=== PATIENT | female | born 1970 | race Two or more races ===

== ENCOUNTER 2019-01-18 16:29 | Inpatient (IN) | payer OTHER ==
[2019-01-18] MEDS ORDERED: SODIUM CHLORIDE 1,000 ML IV STA (17:09)
--- NOTE | 2019-01-18 17:09 | PDOC ---
History of Present Illness - General Chief Complaint: Pain Stated Complaint: ABDOMINAL PAIN Time Seen by Provider: 01/18/19 17:03 History Source: Patient - History of Present Illness Initial Comments: 01/18/19 18:04 48-year-old female complaining of epigastric pain worse at night for the last 8 days. Pain is intermittent in nature reports that the pain radiate from the epigastric to the right shoulder. Denies vomiting, diarrhea, lower abdominal pain, urinary symptoms, chest pain, diaphoresis, dizziness, neck pain. No past medical history Last menstrual period: 01/17/19 Past History - Past Medical History Allergies/Adverse Reactions: Allergies Allergy/AdvReac Type Severity Reaction Status Date / Time No Known Allergies Allergy Verified 01/18/19 16:34 Home Medications: Ambulatory Orders NK [No Known Home Medication] 01/18/19 COPD: No - Suicide/Smoking/Psychosocial Hx Smoking History: Never smoked Review of Systems - Review of Systems Able to Perform ROS?: Yes Is the patient limited Guatemalan proficient: No Constitutional: No: Symptoms Reported, See HPI, Chills, Diaphoresis, Fever, Loss of Appetite, Malaise, Night Sweats, Weakness, Weight Stable, Unintentional Wgt. Loss, Unexplained wgt Loss, Other ABD/GI: Yes: Nausea, Abdominal cramping. No: Symptoms Reported, See HPI, Abdominal Distended, Abd. Pain w/ defecation, Blood Streaked Bowels, Constipated , Diarrhea, Difficulty Swallowing, Poor Appetite, Poor Fluid Intake, Rectal Bleeding, Vomiting, Indigestion, Tarry Stools, Other : No: Symptoms Reported, See HPI, Burning, Dysuria, Discharge, Frequency, Flank Pain, Hematuria, Incontinence, Pain, Urgency, Testicular Mass, Testicular Swelling, Lesions, Testicular Pain, Other Musculoskeletal: No: Symptoms Reported, See HPI, Back Pain, Gout, Joint Pain, Joint Swelling, Muscle Pain, Muscle Weakness, Neck Pain, Joint Stiffness, Other Integumentary: No: Symptoms Reported, See HPI, Bruising, Change in Color, Change in Hair/Nails, Dryness, Erythema, Flushing, Lesions, Lumps, Pallor, Pruritus, Rash, Sweating, Other Neurological: No: Symptoms reported, See HPI, Headache, Numbness, Paresthesia, Pre-Existing Deficit, Seizure, Tingling, Tremors, Weakness, Unsteady Gait, Ataxia, Dizziness, Other *Physical Exam - Vital Signs Last Vital Signs Temp Pulse Resp BP Pulse Ox 98 F 78 18 150/78 99 01/18/19 16:31 01/18/19 16:31 01/18/19 16:31 01/18/19 16:31 01/18/19 16:31 - Physical Exam General Appearance: Yes: Appropriately Dressed Respiratory/Chest: positive: Lungs Clear, Normal Breath Sounds Cardiovascular: positive: Regular Rhythm, Regular Rate Gastrointestinal/Abdominal: positive: Normal Bowel Sounds, Tender (RUQ pain), Soft Musculoskeletal: positive: Normal Inspection. negative: CVA Tenderness Extremity: positive: Normal Capillary Refill, Normal Inspection, Normal Range of Motion Integumentary: positive: Normal Color, Dry, Warm Neurologic: positive: Fully Oriented, Alert Moderate Sedation - Procedure Monitoring Vital Signs: Procedure Monitoring Vital Signs Temperature 98 F 01/18/19 16:31 Pulse Rate 78 01/18/19 16:31 Respiratory Rate 18 01/18/19 16:31 Blood Pressure 150/78 01/18/19 16:31 O2 Sat by Pulse Oximetry (%) 99 01/18/19 16:31 Heart Score/ECG Review - ECG Intrepretation Rhythm: Regular Rhythm Comment:: 01/18/19 18:09 NSR: 76bpm ED Treatment Course - LABORATORY CBC & Chemistry Diagram: 01/18/19 17:50 01/18/19 17:50 Progress Note - Progress Note Progress Note: r/o cholecystitis P: labs IVF GI cocktail EKG Abd US: Within the gallbladder fossa there is a wall echo shadow sign consistent with cholelithiasis. The gallbladder wall is borderline thickened at 0.4 cm in diameter. There is no definite evidence of pericholecystic fluid. The common bile duct measures 0.2 cm in diameter. The pancreas has a unremarkable sonographic appearance, without sonographically detected focal abnormality Medical Decision Making - Medical Decision Making 01/18/19 19:55 discussed Abd US findings with Dr. PARKS. recommends admission and HIDA scan tomorrow. 01/18/19 20:23 patient signed out to Dr. Lowe/ Dr. lopez for admission *DC/Admit/Observation/Transfer Diagnosis at time of Disposition: Abdominal pain Qualifiers: Abdominal location: epigastric Qualified Code(s): R10.13 - Epigastric pain Cholelithiasis Qualifiers: Cholelithiasis location: gallbladder Cholecystitis presence: with cholecystitis Cholecystitis acuity: acute Biliary obstruction: without biliary obstruction Qualified Code(s): K80.00 - Calculus of gallbladder with acute cholecystitis without obstruction - Discharge Dispostion Decision to Admit order: Yes - Referrals Referrals: ON STAFF,NOT [Primary Care Provider] - - Patient Instructions - Post Discharge Activity
[2019-01-18] MEDS ORDERED: FAMOTIDINE 20 MG/50 ML IVPB 20 MG/50 ML MG IVPB ONE ×2 (17:10→17:39)
[2019-01-18] MEDS ORDERED: MAG HYDROX/AL HYDROX/SIMETH 30 ML UNIT-DOSE CUP PO ONE (17:10)
[2019-01-18] MEDS ORDERED: MAG HYDROX/AL HYDROX/SIMETH 30 ML UNIT-DOSE CUP ONE (17:38)
[2019-01-18] MEDS ORDERED: ONDANSETRON 4 MG/2 ML VIAL ONE (17:39)
[2019-01-18 18:00] LABS: BASO % 0.7 % (0-2.0); EOS % 1.2 % (0-4.5); HEMATOCRIT 40.1 % (32.4-45.2); LYMPH % 19.1 % (8-40); MCH 31.1 pg (25.7-33.7); MCHC 34.9 g/dl (32.0-36.0); MEAN CELL VOLUME 89.1 fl (80-96); MEAN PLT VOLUME 7.2 fl (7.5-11.1); MONO % 7.3 % (3.8-10.2); NEUT % 71.7 % (42.8-82.8); PLATELET COUNT 436 K/MM3 (134-434); RDW 14.4 % (11.6-15.6); WHITE BLOOD COUNT 9.6 K/mm3 (4.0-10.0)
[2019-01-18] MEDS ORDERED: ONDANSETRON 4 MG/2 ML VIAL IVPUSH ONE (18:06)
[2019-01-18 18:12] LABS: URINE APPEARANCE SLCLOUDY; URINE BILIRUBIN NEGATIVE (<2.0 mg/dL); URINE COLOR YELLOW; URINE GLUCOSE (UA) NEGATIVE (NEGATIVE); URINE KETONE NEGATIVE (NEGATIVE); URINE LEUK ESTERASE TRACE (NEGATIVE); URINE NITRITE NEGATIVE (NEGATIVE); URINE PROTEIN 2+ (NEGATIVE)
[2019-01-18 18:17] LABS: EPI CELLS RARE /HPF (FEW); URINE MUCUS RARE
[2019-01-18 18:51] LABS: ALBUMIN 3.6 g/dl (3.4-5.0); ALK PHOS 257 U/L (45-117); ANION GAP 9 MMOL/L (8-16); BILIRUBIN,TOTAL 0.5 mg/dL (0.2-1); BLOOD UREA NITROGEN 13 mg/dL (7-18); CALCIUM 8.9 mg/dL (8.5-10.1); CHLORIDE 104 mmol/L (98-107); CO2 26 mmol/L (21-32); CREATININE 0.7 mg/dL (0.55-1.3); GLUCOSE,RANDOM 101 mg/dL (74-106); LIPASE 243 U/L (73-393); POTASSIUM 4.1 mmol/L (3.5-5.1); SGOT/AST 301 U/L (15-37); SGPT/ALT 362 U/L (13-61); SODIUM 138 mmol/L (136-145); TOT PROT 7.6 g/dl (6.4-8.2)
--- NOTE | 2019-01-18 21:27 | PN ---
Teaching Attending Note Name of Resident: Mena Mcgregor ATTENDING PHYSICIAN STATEMENT I saw and evaluated the patient. I reviewed the resident's note and discussed the case with the resident. I agree with the resident's findings and plan as documented. SUBJECTIVE: Patient is a 48 year old woman with no significant PMH presenting with complaint of epigastric pain worse at night for the last 8 days. Pain is intermittent in nature reports that the pain radiate from the epigastric to the right shoulder. Denies vomiting, diarrhea, lower abdominal pain, urinary symptoms, chest pain, diaphoresis, dizziness, neck pain. Denies any obvious sick contacts or recent travel. 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 Currently on her menstrual period. OBJECTIVE: Alert Vital Signs Period Temp Pulse Resp BP Sys/Campoverde Pulse Ox Last 24 Hr 98 F 78 18 150/78 99 HEENT: No Jaundice, eye redness or discharge, PERRLA, EOMI. Normocephalic, atraumatic. External ears are normal and hearing is grossly intact. No nasal discharge. Neck: Supple, nontender. No palpable adenopathy or thyromegaly. No JVD Chest: Good effort. Clear to auscultation and percussion. Heart: Regular. No S3, rub or murmur Abdomen: Not distended, soft, epigastric tenderness and no HSM. No rebound or guarding. Normal bowel sounds. Ext: Peripheral pulses intact. No leg edema. Skin: Warm and dry. No petechiae, rash or ecchymosis. Neuro: Alert. Oriented x3. CN 2-12 grossly intact. Sensation grossly intact in all four extremities and DTR are symmetric. Psych: Appropriate mood and affect. Good insight. Current Medications Generic Name Dose Route Start Last Admin Trade Name Freq PRN Reason Stop Dose Admin Enoxaparin Sodium 40 mg 01/19/19 10:00 Lovenox - SQ DAILY HAILEY Sodium Chloride 1,000 mls @ 83 mls/hr 01/18/19 21:30 Normal Saline - IV ASDIR HAILEY Home Medications Medication Instructions Recorded NK [No Known Home Medication] 01/18/19 Abnormal Lab Results 01/18/19 01/18/19 01/18/19 17:50 17:50 17:50 Plt Count 436 H MPV 7.2 L AST 301 H ALT 362 H Alkaline Phosphatase 257 H Urine Protein 2+ H Urine Blood 3+ H Urine Urobilinogen 2.0 H ASSESSMENT AND PLAN: 1. Abdominal pain - Likely due to cholelithiasis and possibly cholecystitis. Sonogram showed shadow sign consistent with cholelithiasis, the gallbladder wall is borderline thickened at 0.4 cm in diameter and there is no definite evidence of pericholecystic fluid. Surgery consulted and they requested a HIDA scan. Will keep her NPO, continue IV NS at 50 ml/hour, check INR, control pain and trend LFTs. No indication for antibiotics at this time. Got GI cocktail in the ER. Monitor BP closely. 2. DVT prophylaxis - Lovenox 40 mg SQ q 24 hours. 3. Advance directives - Full code
[2019-01-18] MEDS ORDERED: SODIUM CHLORIDE 1,000 ML IV SCH (21:30)
--- NOTE | 2019-01-18 21:35 | HP ---
CHIEF COMPLAINT: epigastric pain PCP: Dr. Mederos ([place]) HISTORY OF PRESENT ILLNESS: 48 Andorran-speaking F w/ no significant pmhx presented to the ED after 8 day history of epigastric pain. She states the pain was is worse after eating fried foods and is usually 10/10. It is a non-radiating, sharp pain which is localized to the epigastrium, 10/10 when it starts and sometimes lasts throughout the night. She admits to taking Advil and Prilosec at home with minimal relief. Also admits to headache and nausea; had 1 episode of non-bilious , non-bloody vomiting episode during the first day of her symptoms. Denies fever /chills, chest pain, shortness of breath, constipation, diarrhea, blood in her urine/stool, dysuria. She is currently on her menstrual cycle which started yesterday and complains of her usual abd cramps. ER course was notable for: (1) AST/ALT 301/362, Alk P 257 (2) Abd U/S (initial read) showed GB full of gall stones, borderling GB wall thickening at 0.4 cm, CBD 0.2 cm diameter (3) Surg made aware and recommended HIDA scan to be done Recent Travel: Denies PAST MEDICAL HISTORY: Denies PAST SURGICAL HISTORY: ? 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 Home: Lives at home in a nap alone, has 2 sons who live on their own Family History: Mom/Maternal uncle: DM Allergies No Known Allergies Allergy (Verified 01/18/19 16:34) HOME MEDICATIONS: Home Medications Medication Instructions Recorded NK [No Known Home Medication] 01/18/19 REVIEW OF SYSTEMS CONSTITUTIONAL: Absent: fever, chills, diaphoresis, generalized weakness, malaise, loss of appetite, weight change HEENT: Absent: rhinorrhea, nasal congestion, throat pain, throat swelling, difficulty swallowing, mouth swelling CARDIOVASCULAR: Absent: chest pain, syncope, palpitations, irregular heart rate, lightheadedness , peripheral edema RESPIRATORY: Absent: cough, shortness of breath, dyspnea with exertion, orthopnea GASTROINTESTINAL: +epigastric pain Absent: abdominal pain, abdominal distension, nausea, vomiting, diarrhea, constipation, melena, hematochezia GENITOURINARY: Absent: dysuria, frequency, urgency, hesitancy, hematuria, flank pain, genital pain MUSCULOSKELETAL: +back pain Absent: myalgia, arthralgia, joint swelling, back pain, neck pain NEUROLOGIC: Absent: headache, focal weakness or paresthesias, dizziness, unsteady gait, seizure, mental status changes, bladder or bowel incontinence PHYSICAL EXAMINATION Vital Signs - 24 hr 01/18/19 16:31 Temperature 98 F Pulse Rate 78 Respiratory 18 Rate Blood Pressure 150/78 O2 Sat by Pulse 99 Oximetry (%) GENERAL: Pleasant, Andorran-speaking female. NAD. Resting comfortably in bed. HEENT: AT/NC. EOMI. BAILEY. Moist mucus membranes. NECK: Normal range of motion, supple without lymphadenopathy, JVD, or masses. LUNGS: CTA B/L. No wheezes noted. HEART: RRR. Normal, S1 S2. No murmurs noted. ABDOMEN: Soft. Mild TTP epigastric area. -Henriquez's sign. normoactive BS. No rebound tenderness/guarding. MUSCULOSKELETAL: Normal range of motion at all joints. No bony deformities or tenderness. No CVA tenderness. UPPER EXTREMITIES: 2+ pulses, warm, well-perfused. No cyanosis. No clubbing. No peripheral edema. LOWER EXTREMITIES: 2+ pulses, warm, well-perfused. No calf tenderness. No peripheral edema. NEUROLOGICAL: Responds to commands. normal speech. 5/5 muscle strength u/l b/l extremities. Laboratory Results - last 24 hr 01/18/19 01/18/19 01/18/19 17:50 17:50 17:50 WBC 9.6 RBC 4.50 Hgb 14.0 Hct 40.1 MCV 89.1 MCH 31.1 MCHC 34.9 RDW 14.4 Plt Count 436 H MPV 7.2 L Absolute Neuts (auto) 6.9 Neutrophils % 71.7 Lymphocytes % 19.1 Monocytes % 7.3 Eosinophils % 1.2 Basophils % 0.7 Nucleated RBC % 0 Sodium 138 Potassium 4.1 Chloride 104 Carbon Dioxide 26 Anion Gap 9 BUN 13 Creatinine 0.7 Creat Clearance w eGFR > 60 Random Glucose 101 Calcium 8.9 Total Bilirubin 0.5 AST 301 H ALT 362 H Alkaline Phosphatase 257 H Total Protein 7.6 Albumin 3.6 Lipase 243 Urine Color Yellow Urine Appearance Slcloudy Urine pH 6.0 Ur Specific Douglass 1.015 Urine Protein 2+ H Urine Glucose (UA) Negative Urine Ketones Negative Urine Blood 3+ H Urine Nitrite Negative Urine Bilirubin Negative Urine Urobilinogen 2.0 H Ur Leukocyte Esterase Trace Urine WBC (Auto) 133 Urine RBC (Auto) 505 Ur Epithelial Cells Rare Urine Mucus Rare Urine HCG, Qual 01/18/19 17:50 WBC RBC Hgb Hct MCV MCH MCHC RDW Plt Count MPV Absolute Neuts (auto) Neutrophils % Lymphocytes % Monocytes % Eosinophils % Basophils % Nucleated RBC % Sodium Potassium Chloride Carbon Dioxide Anion Gap BUN Creatinine Creat Clearance w eGFR Random Glucose Calcium Total Bilirubin AST ALT Alkaline Phosphatase Total Protein Albumin Lipase Urine Color Urine Appearance Urine pH Ur Specific Douglass Urine Protein Urine Glucose (UA) Urine Ketones Urine Blood Urine Nitrite Urine Bilirubin Urine Urobilinogen Ur Leukocyte Esterase Urine WBC (Auto) Urine RBC (Auto) Ur Epithelial Cells Urine Mucus Urine HCG, Qual Negative CONSULT: Surg- Dr. Dahl IMAGING: * Abd U/S (prelim read): GB full of gall stones, borderling GB wall thickening at 0.4 cm, CBD 0.2 cm diameter ASSESSMENT/PLAN: 48 y/o Andorran-speaking F w/ no significant pmhx presented to the ED after 8 day history of epigastric pain. #Epigastric pain; likely biliary colic -Abd U/S noted above. Surg made aware and requesting HIDA scan to be done in AM. -Await further surg recs. Will consult GI if recommended by surg. -NPO/IVf/pain control -No indication for IV abx at this time as pt is afebrile with normal white count. Cont to monitor closely. #Prophylaxis -Lovenox 40 SQ #FEN -NS @ 83 -recheck CMP (LFTs) in AM -NPO dispo -admit to med-surg obs -full code Visit type - Emergency Visit Emergency Visit: Yes ED Registration Date: 01/19/19 Care time: The patient presented to the Emergency Department on the above date and was hospitalized for further evaluation of their emergent condition. - New Patient This patient is new to me today: Yes Date on this admission: 01/19/19 - Critical Care Critical Care patient: No
[2019-01-18] MEDS: SODIUM CHLORIDE 1,000 ML IV SCH (22:05)
[2019-01-18 22:38] LABS: INR 1.13 (0.83-1.09); PROTHROMBIN TIME (PATIENT) 13.4 SEC (9.7-13.0)
[2019-01-19] MEDS ORDERED: ONDANSETRON 4 MG/2 ML VIAL IVPUSH PRN (01:46)
[2019-01-19] MEDS ORDERED: FAMOTIDINE 20 MG/50 ML IVPB 20 MG/50 ML MG IVPB ONE (01:47)
[2019-01-19] MEDS ORDERED: MORPHINE SULFATE 2 MG/ML VIAL IVPUSH ONE (01:50)
[2019-01-19] MEDS: SODIUM CHLORIDE 1,000 ML IV SCH ×2 (02:37→22:52)
[2019-01-19 08:24] LABS: BASO % 0.5 % (0-2.0); HEMATOCRIT 35.8 % (32.4-45.2); HEMOGLOBIN 12.2 GM/dL (10.7-15.3); LYMPH % 28.9 % (8-40); MCH 30.5 pg (25.7-33.7); MCHC 34.2 g/dl (32.0-36.0); MEAN CELL VOLUME 89.2 fl (80-96); MEAN PLT VOLUME 7.2 fl (7.5-11.1); MONO % 8.3 % (3.8-10.2); NEUT % 60.3 % (42.8-82.8); PLATELET COUNT 386 K/MM3 (134-434); RBC 4.01 M/mm3 (3.60-5.2); RDW 13.9 % (11.6-15.6); WHITE BLOOD COUNT 6.1 K/mm3 (4.0-10.0)
[2019-01-19 08:55] LABS: ALBUMIN 3.2 g/dl (3.4-5.0); ALK PHOS 186 U/L (45-117); ANION GAP 7 MMOL/L (8-16); BILIRUBIN,TOTAL 0.5 mg/dL (0.2-1); BLOOD UREA NITROGEN 8 mg/dL (7-18); CALCIUM 7.9 mg/dL (8.5-10.1); CHLORIDE 107 mmol/L (98-107); CO2 25 mmol/L (21-32); CREATININE 0.6 mg/dL (0.55-1.3); GLUCOSE,RANDOM 87 mg/dL (74-106); POTASSIUM 3.6 mmol/L (3.5-5.1); SGOT/AST 71 U/L (15-37); SGPT/ALT 233 U/L (13-61); SODIUM 139 mmol/L (136-145); TOT PROT 6.6 g/dl (6.4-8.2)
[2019-01-19] MEDS ORDERED: ENOXAPARIN NA (PORCINE) 40 MG/0.4 ML DISP.SYRIN SQ SCH (10:00)
--- NOTE | 2019-01-19 10:46 | EKG ---
Test Reason : Blood Pressure : / mmHG Vent. Rate : 075 BPM Atrial Rate : 075 BPM P-R Int : 146 ms QRS Dur : 076 ms QT Int : 382 ms P-R-T Axes : 063 039 022 degrees QTc Int : 426 ms NORMAL SINUS RHYTHM NORMAL ECG NO PREVIOUS ECGS AVAILABLE Confirmed by CEE THORPE MD ([id number]) on 01/19/2019 10:45:58 AM Referred By: Confirmed By:CEE THORPE MD
--- NOTE | 2019-01-19 11:11 | PN ---
Physical Exam: SUBJECTIVE: Patient seen and examined at bedside- no acute events overnight- patient states that she is still having abdominal pain and that it sometimes will radiate to the shoulder, and slight nausea however she denies any vomiting/ fevers or chills. patient is going this AM for HIDA scan OBJECTIVE: Vital Signs Period Temp Pulse Resp BP Sys/Campoverde Pulse Ox Last 24 Hr 97.9 F-98 F 70-78 18-20 131-150/75-79 98-99 GENERAL: The patient is awake, alert, and fully oriented, in no acute distress. EYES: PEERLA; EOMI; no scleral icteurs NECK: no JVD; no lymphadenopathy LUNGS: CTA B/L; no rales, rhonchi or wheezing HEART: Regular rate and rhythm, S1, S2 without murmur, rub or gallop. ABDOMEN: Soft,slight tenderess upon palpation; especially in RUQ however negative murphys sign EXTREMITIES: 2+ pulses, warm, well-perfused, no edema. PSYCH: Normal mood, normal affect. SKIN: Warm, dry, normal turgor, no rashes or lesions noted Laboratory Results - last 24 hr 01/18/19 01/18/19 01/18/19 17:50 17:50 17:50 WBC 9.6 RBC 4.50 Hgb 14.0 Hct 40.1 MCV 89.1 MCH 31.1 MCHC 34.9 RDW 14.4 Plt Count 436 H MPV 7.2 L Absolute Neuts (auto) 6.9 Neutrophils % 71.7 Lymphocytes % 19.1 Monocytes % 7.3 Eosinophils % 1.2 Basophils % 0.7 Nucleated RBC % 0 PT with INR INR Sodium 138 Potassium 4.1 Chloride 104 Carbon Dioxide 26 Anion Gap 9 BUN 13 Creatinine 0.7 Creat Clearance w eGFR > 60 Random Glucose 101 Calcium 8.9 Total Bilirubin 0.5 AST 301 H ALT 362 H Alkaline Phosphatase 257 H Total Protein 7.6 Albumin 3.6 Lipase 243 Urine Color Yellow Urine Appearance Slcloudy Urine pH 6.0 Ur Specific Steens 1.015 Urine Protein 2+ H Urine Glucose (UA) Negative Urine Ketones Negative Urine Blood 3+ H Urine Nitrite Negative Urine Bilirubin Negative Urine Urobilinogen 2.0 H Ur Leukocyte Esterase Trace Urine WBC (Auto) 133 Urine RBC (Auto) 505 Ur Epithelial Cells Rare Urine Mucus Rare Urine HCG, Qual 0301/18/19 01/19/19 17:50 22:00 07:40 WBC 6.1 RBC 4.01 Hgb 12.2 Hct 35.8 MCV 89.2 MCH 30.5 MCHC 34.2 RDW 13.9 Plt Count 386 MPV 7.2 L Absolute Neuts (auto) 3.7 Neutrophils % 60.3 Lymphocytes % 28.9 D Monocytes % 8.3 Eosinophils % 2.0 Basophils % 0.5 Nucleated RBC % 0 PT with INR 13.40 H INR 1.13 H Sodium Potassium Chloride Carbon Dioxide Anion Gap BUN Creatinine Creat Clearance w eGFR Random Glucose Calcium Total Bilirubin AST ALT Alkaline Phosphatase Total Protein Albumin Lipase Urine Color Urine Appearance Urine pH Ur Specific Steens Urine Protein Urine Glucose (UA) Urine Ketones Urine Blood Urine Nitrite Urine Bilirubin Urine Urobilinogen Ur Leukocyte Esterase Urine WBC (Auto) Urine RBC (Auto) Ur Epithelial Cells Urine Mucus Urine HCG, Qual Negative 01/19/19 07:40 WBC RBC Hgb Hct MCV MCH MCHC RDW Plt Count MPV Absolute Neuts (auto) Neutrophils % Lymphocytes % Monocytes % Eosinophils % Basophils % Nucleated RBC % PT with INR INR Sodium 139 Potassium 3.6 Chloride 107 Carbon Dioxide 25 Anion Gap 7 L BUN 8 Creatinine 0.6 Creat Clearance w eGFR > 60 Random Glucose 87 Calcium 7.9 L Total Bilirubin 0.5 AST 71 H ALT 233 H Alkaline Phosphatase 186 H Total Protein 6.6 Albumin 3.2 L Lipase Urine Color Urine Appearance Urine pH Ur Specific Steens Urine Protein Urine Glucose (UA) Urine Ketones Urine Blood Urine Nitrite Urine Bilirubin Urine Urobilinogen Ur Leukocyte Esterase Urine WBC (Auto) Urine RBC (Auto) Ur Epithelial Cells Urine Mucus Urine HCG, Qual Active Medications Generic Name Dose Route Start Last Admin Trade Name Freq PRN Reason Stop Dose Admin Enoxaparin Sodium 40 mg 01/19/19 10:00 01/19/19 10:42 Lovenox - SQ Not Given DAILY HAILEY Sodium Chloride 1,000 mls @ 50 mls/hr 01/18/19 21:53 01/19/19 02:37 Normal Saline - IV 50 mls/hr ASDIR HAILEY Administration Ondansetron HCl 4 mg 01/19/19 01:46 Zofran Injection IVPUSH Q8H PRN NAUSEA AND/OR VOMITING ASSESSMENT/PLAN: 48 y/o Icelandic-speaking F w/ no significant pmhx presented to the ED after 8 day history of epigastric pain. #Epigastric pain; likely biliary colic -Abd U/S noted above. Surg made aware HIDA scan is being done this AM. -Will consult GI if recommended by surg. -will be seen by surgery this AM -NPO/IVf/pain control -No indication for IV abx at this time as pt is afebrile with normal white count. Cont to monitor closely. #Prophylaxis -Lovenox 40 SQ #FEN -NS @ 83 -recheck CMP (LFTs) in AM -NPO dispo -admit to med-surg obs -full code Problem List - Problems (1) Abdominal pain Code(s): R10.9 - UNSPECIFIED ABDOMINAL PAIN Qualifiers: Abdominal location: epigastric Qualified Code(s): R10.13 - Epigastric pain (2) Cholelithiasis Code(s): K80.20 - CALCULUS OF GALLBLADDER W/O CHOLECYSTITIS W/O OBSTRUCTION Qualifiers: Cholelithiasis location: gallbladder Cholecystitis presence: with cholecystitis Cholecystitis acuity: acute Biliary obstruction: without biliary obstruction Qualified Code(s): K80.00 - Calculus of gallbladder with acute cholecystitis without obstruction Visit type - Emergency Visit Emergency Visit: Yes ED Registration Date: 01/19/19 Care time: The patient presented to the Emergency Department on the above date and was hospitalized for further evaluation of their emergent condition. - New Patient This patient is new to me today: Yes Date on this admission: 01/19/19 - Critical Care Critical Care patient: No
--- NOTE | 2019-01-19 12:58 | CONSULT ---
Consult Consult Specialty:: Surgery Reason for Consultation:: abdominal pain - History of Present Illness History of Present Illness: 48 Thai-speaking F w/ no significant pmhx presented to the ED after 8 day history of epigastric pain. She states the pain was is worse after eating fried foods and is usually 10/10. It is a non-radiating, sharp pain which is localized to the epigastrium, 10/10 when it starts and sometimes lasts throughout the night. She admits to taking Advil and Prilosec at home with minimal relief. Also admits to headache and nausea; had 1 episode of non-bilious , non-bloody vomiting episode during the first day of her symptoms. Denies fever /chills, chest pain, shortness of breath, constipation, diarrhea, blood in her urine/stool, dysuria. She is currently on her menstrual cycle which started yesterday and complains of her usual abd cramps. - History Source History Provided By: Patient Limitations to Obtaining History: No Limitations - Alcohol/Substance Use Hx Alcohol Use: No - Smoking History Smoking history: Never smoked Home Medications - Allergies Allergies/Adverse Reactions: Allergies Allergy/AdvReac Type Severity Reaction Status Date / Time No Known Allergies Allergy Verified 01/18/19 16:34 - Home Medications Home Medications: Ambulatory Orders NK [No Known Home Medication] 01/18/19 Review of Systems - Review of Systems Gastrointestinal: reports: Abdominal Pain (epigastric region radiating to the back) Physical Exam Vital Signs: Vital Signs Temperature 98 F 01/19/19 05:00 Pulse Rate 70 01/19/19 05:00 Respiratory Rate 18 01/19/19 05:00 Blood Pressure 132/75 01/19/19 05:00 O2 Sat by Pulse Oximetry (%) 98 01/18/19 23:47 Constitutional: Yes: Well Nourished, No Distress Eyes: Yes: Conjunctiva Clear HENT: Yes: Normocephalic Cardiovascular: Yes: Regular Rate and Rhythm Respiratory: Yes: CTA Bilaterally Gastrointestinal: Yes: Soft, Tenderness (mild at epigastric region) ...Rectal Exam: Yes: Deferred Renal/: Yes: WNL Extremities: Yes: WNL Labs: CBC, BMP 01/19/19 07:40 01/19/19 07:40 Problem List - Problems (1) Cholelithiasis Assessment/Plan: possible acute cholecystitis with intermittent passage of CBD stones For laparoscopic cholecystectomy in am Risks, benefits, and alternatives to the procedure including possibility of retained CBD D/W patient with drafting instructor (Nurse Guerrero) Code(s): K80.20 - CALCULUS OF GALLBLADDER W/O CHOLECYSTITIS W/O OBSTRUCTION Qualifiers: Cholelithiasis location: gallbladder Cholecystitis presence: with cholecystitis Cholecystitis acuity: acute Biliary obstruction: without biliary obstruction Qualified Code(s): K80.00 - Calculus of gallbladder with acute cholecystitis without obstruction
[2019-01-19] MEDS ORDERED: morphine SULFATE 4 MG/ML VIAL IM PRN (13:46)
[2019-01-19] MEDS ORDERED: morphine SULFATE 4 MG/ML VIAL IV PRN (15:47)
[2019-01-19] MEDS ORDERED: ONDANSETRON 4 MG/2 ML VIAL IVPUSH ONE (17:15)
--- NOTE | 2019-01-19 17:45 | PN ---
Teaching Attending Note Name of Resident: Ana María Charles ATTENDING PHYSICIAN STATEMENT I saw and evaluated the patient. I reviewed the resident's note and discussed the case with the resident. I agree with the resident's findings and plan as documented. SUBJECTIVE: Patient is a 48yo female c/o having RUQ pain OBJECTIVE: Vital Signs Temperature 97.9 F 01/19/19 09:00 Pulse Rate 71 01/19/19 09:00 Respiratory Rate 18 01/19/19 09:00 Blood Pressure 130/89 01/19/19 09:00 O2 Sat by Pulse Oximetry (%) 98 01/18/19 23:47 GENERAL: The patient is awake, alert, and fully oriented, in no acute distress. EYES: PEERLA; EOMI; no scleral icteurs NECK: no JVD; no lymphadenopathy LUNGS: CTA B/L; no rales, rhonchi or wheezing HEART: Regular rate and rhythm, S1, S2 without murmur, rub or gallop. ABDOMEN: Soft,RUQ tenderess EXTREMITIES: 2+ pulses, warm, well-perfused, no edema. PSYCH: Normal mood, normal affect. SKIN: Warm, dry, normal turgor, no rashes or lesions noted CBCD WBC 6.1 K/mm3 (4.0-10.0) 01/19/19 07:40 RBC 4.01 M/mm3 (3.60-5.2) 01/19/19 07:40 Hgb 12.2 GM/dL (10.7-15.3) 01/19/19 07:40 Hct 35.8 % (32.4-45.2) 01/19/19 07:40 MCV 89.2 fl (80-96) 01/19/19 07:40 MCHC 34.2 g/dl (32.0-36.0) 01/19/19 07:40 RDW 13.9 % (11.6-15.6) 01/19/19 07:40 Plt Count 386 K/MM3 (134-434) 01/19/19 07:40 MPV 7.2 fl (7.5-11.1) L 01/19/19 07:40 CMP Sodium 139 mmol/L (136-145) 01/19/19 07:40 Potassium 3.6 mmol/L (3.5-5.1) 01/19/19 07:40 Chloride 107 mmol/L (98-107) 01/19/19 07:40 Carbon Dioxide 25 mmol/L (21-32) 01/19/19 07:40 Anion Gap 7 MMOL/L (8-16) L 01/19/19 07:40 BUN 8 mg/dL (7-18) 01/19/19 07:40 Creatinine 0.6 mg/dL (0.55-1.3) 01/19/19 07:40 Creat Clearance w eGFR > 60 (>60) 01/19/19 07:40 Random Glucose 87 mg/dL (74-106) 01/19/19 07:40 Calcium 7.9 mg/dL (8.5-10.1) L 01/19/19 07:40 Total Bilirubin 0.5 mg/dL (0.2-1) 01/19/19 07:40 AST 71 U/L (15-37) H 01/19/19 07:40 ALT 233 U/L (13-61) H 01/19/19 07:40 Alkaline Phosphatase 186 U/L (45-117) H 01/19/19 07:40 Total Protein 6.6 g/dl (6.4-8.2) 01/19/19 07:40 Albumin 3.2 g/dl (3.4-5.0) L 01/19/19 07:40 Current Medications Generic Name Dose Route Start Last Admin Trade Name Freq PRN Reason Stop Dose Admin Enoxaparin Sodium 40 mg 01/19/19 10:00 01/19/19 10:42 Lovenox - SQ Not Given DAILY HAILEY Sodium Chloride 1,000 mls @ 50 mls/hr 01/18/19 21:53 01/19/19 02:37 Normal Saline - IV 50 mls/hr ASDIR HAILEY Administration Morphine Sulfate 2 mg 01/19/19 15:47 Morphine Sulfate IV Q8H PRN PAIN LEVEL 4 - 6 Ondansetron HCl 4 mg 01/19/19 01:46 Zofran Injection IVPUSH Q8H PRN NAUSEA AND/OR VOMITING Home Medications Medication Instructions Recorded NK [No Known Home Medication] 01/18/19 Hida scan:chronic cholecystitis. ASSESSMENT AND PLAN: Patient is a 48yo female Albanian-speaking, with no significant pmhx presented to the ED c/o having RUQ/epigastric pain. #Acute RUQ pain/ Epigastric pain due to hacing Chronic Cholecystitis: Hida scan positive for chronic cholecystitis. Abd U/S noted above. patient is going to OR by Dr. Dahl. in am DVt Prophylaxis: Lovenox is on Hold full code NPO after midnight, patient is going to OR
[2019-01-20] MEDS: SODIUM CHLORIDE 1,000 ML IV SCH ×2 (02:54→23:45)
[2019-01-20 07:16] LABS: HEMOGLOBIN 13.4 GM/dL (10.7-15.3); MCH 30.8 pg (25.7-33.7); MCHC 34.5 g/dl (32.0-36.0); MEAN CELL VOLUME 89.2 fl (80-96); MEAN PLT VOLUME 7.1 fl (7.5-11.1); PLATELET COUNT 454 K/MM3 (134-434); RBC 4.37 M/mm3 (3.60-5.2); WHITE BLOOD COUNT 6.7 K/mm3 (4.0-10.0)
--- NOTE | 2019-01-20 07:54 | PN ---
Physical Exam: SUBJECTIVE: Patient seen and examined at bedside- no acute events overnight; patient states that her pain is well controlled with pain meds- she denies any nausea/vomiting or diarrhea; patient going this AM for lap choley OBJECTIVE: Vital Signs Period Temp Pulse Resp BP Sys/Campoverde Pulse Ox Last 24 Hr 97.8 F-98.1 F 62-71 18-18 117-130/69-89 97 GENERAL: The patient is awake, alert, and fully oriented, in no acute distress. EYES:PEERLA; EOMI; no scleral icterus . NECK: no JVD: no lymphadenopathy LUNGS: CTA B/L; no rales, rhonchi or wheezing. HEART: Regular rate and rhythm, S1, S2 without murmur, rub or gallop. ABDOMEN: Soft, slight RUQ tenderness and epigastric tenderness upon palpation; + BS in all 4 quadrants. EXTREMITIES: 2+ pulses, warm, well-perfused, no edema. PSYCH: Normal mood, normal affect. SKIN: Warm, dry, normal turgor, no rashes or lesions noted Laboratory Results - last 24 hr 01/19/19 01/19/19 01/20/19 07:40 07:40 06:30 WBC 6.1 6.7 RBC 4.01 4.37 Hgb 12.2 13.4 Hct 35.8 39.0 MCV 89.2 89.2 MCH 30.5 30.8 MCHC 34.2 34.5 RDW 13.9 14.0 Plt Count 386 454 H MPV 7.2 L 7.1 L Absolute Neuts (auto) 3.7 Neutrophils % 60.3 Lymphocytes % 28.9 D Monocytes % 8.3 Eosinophils % 2.0 Basophils % 0.5 Nucleated RBC % 0 Sodium 139 Potassium 3.6 Chloride 107 Carbon Dioxide 25 Anion Gap 7 L BUN 8 Creatinine 0.6 Creat Clearance w eGFR > 60 Random Glucose 87 Calcium 7.9 L Total Bilirubin 0.5 AST 71 H ALT 233 H Alkaline Phosphatase 186 H Total Protein 6.6 Albumin 3.2 L Active Medications Generic Name Dose Route Start Last Admin Trade Name Freq PRN Reason Stop Dose Admin Enoxaparin Sodium 40 mg 01/19/19 10:00 01/19/19 10:42 Lovenox - SQ Not Given DAILY HAILEY Sodium Chloride 1,000 mls @ 50 mls/hr 01/18/19 21:53 01/20/19 02:54 Normal Saline - IV 50 mls/hr ASDIR HAILEY Administration Morphine Sulfate 2 mg 01/19/19 15:47 01/19/19 23:03 Morphine Sulfate IV 2 mg Q8H PRN Administration PAIN LEVEL 4 - 6 Ondansetron HCl 4 mg 01/19/19 01:46 Zofran Injection IVPUSH Q8H PRN NAUSEA AND/OR VOMITING ASSESSMENT/PLAN: 48 y/o Latvian-speaking F w/ no significant pmhx presented to the ED after 8 day history of epigastric pain. #Epigastric pain; likely biliary colic -patient going for lap choley this AM -NPO/IVf/pain control -No indication for IV abx at this time as pt is afebrile with normal white count. Cont to monitor closely. #Prophylaxis -Lovenox 40 SQ #FEN -NS @ 83 -recheck CMP (LFTs) in AM -NPO dispo -admit to med-surg obs -full code Problem List - Problems (1) Abdominal pain Code(s): R10.9 - UNSPECIFIED ABDOMINAL PAIN Qualifiers: Abdominal location: epigastric Qualified Code(s): R10.13 - Epigastric pain (2) Cholelithiasis Code(s): K80.20 - CALCULUS OF GALLBLADDER W/O CHOLECYSTITIS W/O OBSTRUCTION Qualifiers: Cholelithiasis location: gallbladder Cholecystitis presence: with cholecystitis Cholecystitis acuity: acute Biliary obstruction: without biliary obstruction Qualified Code(s): K80.00 - Calculus of gallbladder with acute cholecystitis without obstruction Visit type - Emergency Visit Emergency Visit: Yes ED Registration Date: 01/19/19 Care time: The patient presented to the Emergency Department on the above date and was hospitalized for further evaluation of their emergent condition. - New Patient This patient is new to me today: No - Critical Care Critical Care patient: No
[2019-01-20 08:33] LABS: ANION GAP 9 MMOL/L (8-16); BLOOD UREA NITROGEN 8 mg/dL (7-18); CALCIUM 8.7 mg/dL (8.5-10.1); CHLORIDE 103 mmol/L (98-107); CO2 25 mmol/L (21-32); CREATININE 0.6 mg/dL (0.55-1.3); GLUCOSE,RANDOM 83 mg/dL (74-106); MAGNESIUM 2.6 mg/dL (1.8-2.4); PHOSPHOROUS 3.2 mg/dL (2.5-4.9); POTASSIUM 3.7 mmol/L (3.5-5.1); SODIUM 137 mmol/L (136-145)
--- NOTE | 2019-01-20 09:48 | PN ---
Teaching Attending Note Name of Resident: Ana María Charles ATTENDING PHYSICIAN STATEMENT I saw and evaluated the patient. I reviewed the resident's note and discussed the case with the resident. I agree with the resident's findings and plan as documented. SUBJECTIVE: OBJECTIVE: Vital Signs Temperature 98.1 F 01/20/19 06:00 Pulse Rate 62 01/20/19 06:00 Respiratory Rate 18 01/20/19 06:00 Blood Pressure 117/72 01/20/19 06:00 O2 Sat by Pulse Oximetry (%) 97 01/19/19 15:00 GENERAL: The patient is awake, alert, and fully oriented, in no acute distress. EYES: PEERLA; EOMI; no scleral icteurs NECK: no JVD; no lymphadenopathy LUNGS: CTA B/L; no rales, rhonchi or wheezing HEART: Regular rate and rhythm, S1, S2 without murmur, rub or gallop. ABDOMEN: Soft,RUQ tenderess EXTREMITIES: 2+ pulses, warm, well-perfused, no edema. PSYCH: Normal mood, normal affect. SKIN: Warm, dry, normal turgor, no rashes or lesions notedCBCD WBC 6.7 K/mm3 (4.0-10.0) 01/20/19 06:30 RBC 4.37 M/mm3 (3.60-5.2) 01/20/19 06:30 Hgb 13.4 GM/dL (10.7-15.3) 01/20/19 06:30 Hct 39.0 % (32.4-45.2) 01/20/19 06:30 MCV 89.2 fl (80-96) 01/20/19 06:30 MCHC 34.5 g/dl (32.0-36.0) 01/20/19 06:30 RDW 14.0 % (11.6-15.6) 01/20/19 06:30 Plt Count 454 K/MM3 (134-434) H 01/20/19 06:30 MPV 7.1 fl (7.5-11.1) L 01/20/19 06:30 CMP Sodium 137 mmol/L (136-145) 01/20/19 06:30 Potassium 3.7 mmol/L (3.5-5.1) 01/20/19 06:30 Chloride 103 mmol/L (98-107) 01/20/19 06:30 Carbon Dioxide 25 mmol/L (21-32) 01/20/19 06:30 Anion Gap 9 MMOL/L (8-16) 01/20/19 06:30 BUN 8 mg/dL (7-18) 01/20/19 06:30 Creatinine 0.6 mg/dL (0.55-1.3) 01/20/19 06:30 Creat Clearance w eGFR > 60 (>60) 01/20/19 06:30 Random Glucose 83 mg/dL (74-106) 01/20/19 06:30 Calcium 8.7 mg/dL (8.5-10.1) 01/20/19 06:30 Total Bilirubin 0.5 mg/dL (0.2-1) 01/19/19 07:40 AST 71 U/L (15-37) H 01/19/19 07:40 ALT 233 U/L (13-61) H 01/19/19 07:40 Alkaline Phosphatase 186 U/L (45-117) H 01/19/19 07:40 Total Protein 6.6 g/dl (6.4-8.2) 01/19/19 07:40 Albumin 3.2 g/dl (3.4-5.0) L 01/19/19 07:40 Current Medications Generic Name Dose Route Start Last Admin Trade Name Freq PRN Reason Stop Dose Admin Enoxaparin Sodium 40 mg 01/19/19 10:00 01/19/19 10:42 Lovenox - SQ Not Given DAILY HAILEY Sodium Chloride 1,000 mls @ 50 mls/hr 01/18/19 21:53 01/20/19 02:54 Normal Saline - IV 50 mls/hr ASDIR HAILEY Administration Morphine Sulfate 2 mg 01/19/19 15:47 01/19/19 23:03 Morphine Sulfate IV 2 mg Q8H PRN Administration PAIN LEVEL 4 - 6 Ondansetron HCl 4 mg 01/19/19 01:46 Zofran Injection IVPUSH Q8H PRN NAUSEA AND/OR VOMITING Home Medications Medication Instructions Recorded NK [No Known Home Medication] 01/18/19 Hida scan:chronic cholecystitis. ASSESSMENT AND PLAN: Patient is a 48yo female Armenian-speaking, with no significant pmhx presented to the ED c/o having RUQ/epigastric pain. #Acute RUQ pain/ Epigastric pain ; Hida scan positive for chronic cholecystitis going for lap. Vanita today by Dr. PARKS. DVt Prophylaxis: Lovenox is on Hold full code
[2019-01-20 13:13] VITALS: BMI 27.2
[2019-01-20] MEDS ORDERED: ROCURONIUM BROMIDE 50 MG/5 ML VIAL ONE ×2 (15:19)
[2019-01-20] MEDS ORDERED: PROPOFOL 20 ML ONE ×2 (15:19→17:07)
[2019-01-20] MEDS ORDERED: fentaNYL CITRATE 250 MCG/5 ML VIAL ONE (15:19)
[2019-01-20] MEDS ORDERED: MIDAZOLAM HCL 2 MG/2 ML SINGLE DOSE VIAL ONE (15:19)
[2019-01-20] MEDS ORDERED: BUPIVACAINE HCL/PF 0.5% (5MG/ML) 10 ML VIAL ONE (15:31)
[2019-01-20] MEDS ORDERED: ceFAZolin SODIUM 1 GM VIAL ONE (15:44)
[2019-01-20] MEDS ORDERED: ceFAZolin SODIUM 1 GM VIAL IVPB ONE (15:45)
[2019-01-20] MEDS ORDERED: BUPIVACAINE HCL/PF (5 MG/ML) 30 ML VIAL IJ ONE ×2 (16:05)
[2019-01-20] MEDS ORDERED: NEOSTIGMINE METHYLSULFATE 0.5 MG/ML - 10 ML MDV ONE (16:14)
[2019-01-20] MEDS ORDERED: oxyCODONE HCL 5 MG TABLET PO PRN (17:27)
[2019-01-20] MEDS ORDERED: ACETAMINOPHEN 325 MG TABLET (FP) PO PRN (17:29)
[2019-01-20] MEDS ORDERED: ACETAMINOPHEN 1000 MG/100 ML VIAL (NON FORMULARY) IVPB ONE (17:30)
[2019-01-20] MEDS ORDERED: ONDANSETRON 4 MG/2 ML VIAL IVPUSH PRN ×2 (17:32)
--- NOTE | 2019-01-20 17:33 | OP ---
Operative Note - Note: Operative Date: 01/20/19 Pre-Operative Diagnosis: Acute cholecystitis, Cholelithiasis Operation: Laparoscopic cholecystectomy Post-Operative Diagnosis: Same as Pre-op Surgeon: Malcom Dahl Customer Support Representative: Melissa Caruso Anesthesiologist/UNCRATER: Wang Torres Anesthesia: General Specimens Removed: gallbladder Estimated Blood Loss (mls): 30 Fluid Volume Replaced (mls): 800 Operative Report Dictated: Yes
--- NOTE | 2019-01-20 17:34 | SURG ---
Surgery Capacity Manager Note Capacity Manager: Melissa Caruso PA-C Date of Service: 01/20/19 Diagnosis: Acute cholecystitis, cholelithiasis Procedure: laparoscopic cholecystecomy I was present for the entirety of the operative procedure. For further detail, please refer to operative report. Visit type - Case Type Case Type: ED Admission - Emergency Emergency Visit: Yes ED Registration Date: 01/19/19 Care time: The patient presented to the Emergency Department on the above date and was hospitalized for further evaluation of their emergent condition. - New patient This patient is new to me today: Yes Date on this admission: 01/20/19
[2019-01-20] MEDS ORDERED: ACETAMINOPHEN INJECTION 100 ML IVPB ONE (17:49)
[2019-01-20] MEDS: LACTATED RINGERS SOLUTION 1,000 ML IV SCH ×2 (17:56→18:18)
[2019-01-20] MEDS: oxyCODONE HCL 5 MG TABLET PO PRN (21:43)
[2019-01-20] MEDS: CEFAZOLIN 1 GM/D5W 1 GM/50 ML BAG IVPB SCH (23:46)
[2019-01-21] MEDS: oxyCODONE HCL 5 MG TABLET PO PRN ×2 (02:40→12:40)
[2019-01-21] MEDS: SODIUM CHLORIDE 1,000 ML IV SCH (02:41)
[2019-01-21 07:18] LABS: HEMATOCRIT 33.2 % (32.4-45.2); HEMOGLOBIN 11.7 GM/dL (10.7-15.3); MCH 31.4 pg (25.7-33.7); MCHC 35.2 g/dl (32.0-36.0); MEAN PLT VOLUME 7.3 fl (7.5-11.1); PLATELET COUNT 342 K/MM3 (134-434); RBC 3.73 M/mm3 (3.60-5.2); RDW 13.9 % (11.6-15.6)
[2019-01-21 07:45] LABS: ANION GAP 7 MMOL/L (8-16); BLOOD UREA NITROGEN 7 mg/dL (7-18); CALCIUM 7.5 mg/dL (8.5-10.1); CHLORIDE 102 mmol/L (98-107); CO2 26 mmol/L (21-32); CREATININE 0.5 mg/dL (0.55-1.3); GLUCOSE,RANDOM 96 mg/dL (74-106); MAGNESIUM 2.2 mg/dL (1.8-2.4); PHOSPHOROUS 3.3 mg/dL (2.5-4.9); POTASSIUM 3.6 mmol/L (3.5-5.1); SODIUM 135 mmol/L (136-145)
[2019-01-21] MEDS: CEFAZOLIN 1 GM/D5W 1 GM/50 ML BAG IVPB SCH (08:09)
[2019-01-21] MEDS ORDERED: NAPH,MB-DB/K PH,MBDB POWDER PACKET PO ONE (08:26)
[2019-01-21 08:46] LABS: SGOT/AST 53 U/L (15-37); SGPT/ALT 149 U/L (13-61)
--- NOTE | 2019-01-21 08:48 | PN ---
Physical Exam: SUBJECTIVE: Patient seen and examined OBJECTIVE: Vital Signs Period Temp Pulse Resp BP Sys/Campoverde Pulse Ox Last 24 Hr 98.1 F-99.2 F 56-72 14-18 108-150/60-78 97-98 GENERAL: The patient is awake, alert, and fully oriented, in no acute distress. HEAD: Normal with no signs of trauma. EYES: PERRL, extraocular movements intact, sclera anicteric, conjunctiva clear. No ptosis. ENT: Ears normal, nares patent, oropharynx clear without exudates, moist mucous membranes. NECK: Trachea midline, full range of motion, supple. LUNGS: Breath sounds equal, clear to auscultation bilaterally, no wheezes, no crackles, no accessory muscle use. HEART: Regular rate and rhythm, S1, S2 without murmur, rub or gallop. ABDOMEN: Soft, nontender, nondistended, normoactive bowel sounds, no guarding, no rebound, no hepatosplenomegaly, no masses. EXTREMITIES: 2+ pulses, warm, well-perfused, no edema. NEUROLOGICAL: Cranial nerves II through XII grossly intact. Normal speech, gait not observed. PSYCH: Normal mood, normal affect. SKIN: Warm, dry, normal turgor, no rashes or lesions noted Laboratory Results - last 24 hr 01/21/19 01/21/19 06:20 06:20 WBC 9.0 RBC 3.73 Hgb 11.7 Hct 33.2 MCV 89.0 MCH 31.4 MCHC 35.2 RDW 13.9 Plt Count 342 D MPV 7.3 L Sodium 135 L Potassium 3.6 Chloride 102 Carbon Dioxide 26 Anion Gap 7 L BUN 7 Creatinine 0.5 L Creat Clearance w eGFR > 60 Random Glucose 96 Calcium 7.5 L Phosphorus 3.3 Magnesium 2.2 AST 53 H ALT 149 H Active Medications Generic Name Dose Route Start Last Admin Trade Name Freq PRN Reason Stop Dose Admin Acetaminophen 650 mg 01/20/19 17:29 Tylenol - PO Q6H PRN FEVER Enoxaparin Sodium 40 mg 01/21/19 10:00 Lovenox - SQ DAILY HAILEY Sodium Chloride 1,000 mls @ 125 mls/hr 01/20/19 17:29 01/21/19 02:41 Normal Saline - IV 125 mls/hr ASDIR HAILEY Administration Lactated Ringer's 1,000 mls @ 125 mls/hr 01/20/19 17:45 01/20/19 18:18 Lactated Ringers Solution IV 200 mls ASDIR HAILEY Administration Ondansetron HCl 4 mg 01/20/19 17:32 Zofran Injection IVPUSH Q8H PRN NAUSEA AND/OR VOMITING Oxycodone HCl 5 mg 01/20/19 17:27 Roxicodone - PO Q4H PRN PAIN LEVEL 1-5 Oxycodone HCl 10 mg 01/20/19 17:27 01/21/19 02:40 Roxicodone - PO 10 mg Q4H PRN Administration PAIN LEVEL 6-10 ASSESSMENT/PLAN: 48 y/o Nepali-speaking F w/ no significant pmhx presented to the ED after 8 day history of epigastric pain. #Epigastric pain; -POD #1 from lap choley -clear liquid diet -NS @125 -zofran/oxy for nausea/pain control -ancef X2 bags #Prophylaxis -Lovenox 40 SQ #FEN -NS @ 83 -recheck CMP (LFTs) in AM -NPO dispo -admit to med-surg obs -full code Problem List - Problems (1) Abdominal pain Code(s): R10.9 - UNSPECIFIED ABDOMINAL PAIN Qualifiers: Abdominal location: epigastric Qualified Code(s): R10.13 - Epigastric pain (2) Cholelithiasis Code(s): K80.20 - CALCULUS OF GALLBLADDER W/O CHOLECYSTITIS W/O OBSTRUCTION Qualifiers: Cholelithiasis location: gallbladder Cholecystitis presence: with cholecystitis Cholecystitis acuity: acute Biliary obstruction: without biliary obstruction Qualified Code(s): K80.00 - Calculus of gallbladder with acute cholecystitis without obstruction
[2019-01-21] MEDS ORDERED: ENOXAPARIN NA (PORCINE) 40 MG/0.4 ML DISP.SYRIN SQ SCH (10:00)
--- NOTE | 2019-01-21 11:54 | PN ---
Progress Note (short form) - Note Progress Note: POD 1, s/p Laparoscopic cholecystectomy Pt seen and examined. States she is feeling well. Has been oob to restroom without issue. Pain is well controlled. Tolerating PO. Denies cp/sob, n/v/d, calf pain/edema. Vital Signs Temp 98.9 F 01/21/19 09:15 Pulse 70 01/21/19 09:15 Resp 18 01/21/19 09:15 BP 127/66 01/21/19 09:15 Pulse Ox 98 01/21/19 09:00 Intake & Output 01/20/19 01/21/19 01/21/19 23:59 11:59 23:59 Intake Total 1350 1200 Output Total 30 Balance 1320 1200 Weight 135 lb Intake: IV 1300 1200 Lactated Ringers Solution 800 1,000 ml @ 125 mls/hr IV ASDIR HAILEY Rx#: [id number] Normal Saline - 1,000 ml 400 @ 125 mls/hr IV ASDIR HAILEY Rx#:[id number] IVPB 50 Oral 0 Output: Estimated Blood Loss 30 Other: Voiding Method Toilet Toilet # Unmeasured Voids Void 1 2 Bowel Movement No No Height 4 ft 11 in Body Mass Index (BMI) 27.2 CBC, BMP 01/21/19 06:20 01/21/19 06:20 Gen: awake, alert, nad sitting in chair with family bedside Resp: Unlabored on RA Abdo: soft, nondistended, minimally ttp at incision sites. Dressings c/d/i A/P: 48 [place]inean-speaking F w/ no significant pmhx a/w abdominal pain, found to have Acute cholecystitis, Cholelithiasis now POD 1, s/p Laparoscopic cholecystectomy. Pt doing well this AM. Afebrile, VSS. Labs stable. -Pain control -Regular diet -oob ad luis -Remainder of care per primary team
--- NOTE | 2019-01-21 14:14 | PN ---
Teaching Attending Note Name of Resident: Ana María Charles ATTENDING PHYSICIAN STATEMENT I saw and evaluated the patient. I reviewed the resident's note and discussed the case with the resident. I agree with the resident's findings and plan as documented. SUBJECTIVE: no fever or chills. minimal abd pain, no SOB , no fever , tolerated diet . denies any urinary sx now or before admisison , no lower abd pain, no flank pain , no dysuria or frequency OBJECTIVE: NAD Cv : RRR Lungs: CTAB ext : no edema Abd: soft, Nd, TTP in epigastric area and at wound sites. no rebound or guarding . ASSESSMENT AND PLAN: 48 y/o lady with no significant PMH who presented with abd pain and was found to have cholelithiasis and evidence of chronic cholecystitis 1- cholelithiasis and chronic cholecystitis: s/p CCY POD 1 tolerated diet dc home on ibuprofen f/u with Dr. Dahl dc home no signs or sx of UTI, will not treat asymptomatic pyuria
[2019-01-21 14:24] VITALS: BP 138/76; PULSE 78; TEMP 98.7
--- NOTE | 2019-01-21 15:25 | DS ---
Physical Exam: SUBJECTIVE: Patient seen and examined at bedside no acute events overnight patient states she is feeling better just having slight abdominal pain at the surgical site iis not passing gas yet; denies any CP/SOB/N/V fevers or chills OBJECTIVE: Vital Signs Period Temp Pulse Resp BP Sys/Campoverde Pulse Ox Last 24 Hr 98.1 F-99.2 F 56-78 14-20 108-150/60-76 97-98 PHYSICAL EXAM GENERAL: The patient is awake, alert, and fully oriented, in no acute distress. EYES: PEERLA EOMI no scleral icterus . . NECK: no JVD no lymphadenopathy LUNGS:CTA B/L; no rales, rhonchi or wheezing HEART: Regular rate and rhythm, S1, S2 without murmur, rub or gallop. ABDOMEN: Soft, nontender, nondistended, normoactive bowel sounds, no guarding, no rebound, no hepatosplenomegaly, no masses. EXTREMITIES: 2+ pulses, warm, well-perfused, trace edema. NEUROLOGICAL: Cranial nerves II through XII grossly intact. Normal speech, gait not observed. PSYCH: Normal mood, normal affect. SKIN: Warm, dry, normal turgor, no rashes or lesions noted. LABS Laboratory Results - last 24 hr 01/21/19 01/21/19 06:20 06:20 WBC 9.0 RBC 3.73 Hgb 11.7 Hct 33.2 MCV 89.0 MCH 31.4 MCHC 35.2 RDW 13.9 Plt Count 342 D MPV 7.3 L Sodium 135 L Potassium 3.6 Chloride 102 Carbon Dioxide 26 Anion Gap 7 L BUN 7 Creatinine 0.5 L Creat Clearance w eGFR > 60 Random Glucose 96 Calcium 7.5 L Phosphorus 3.3 Magnesium 2.2 AST 53 H ALT 149 H Abdominal U/S: showed cholethiasis with gallbladder wall thickening and normal CBD duct HOSPITAL COURSE: Date of Admission:01/19/19 48 y/o female with no signficant PMH presented to the ED with an 8 day history of epigastric pain;. imaging was done and patient found to have cholethiasis. she underwent a HIDA scan which showed gallstones. she was seen by a surgepn who thought that she had a case of chronic cholecystitis and felt that she needed her gallbaldder removed. so she underwent a lap choleycystecomy with no preston-operative or post-operative complications. she tolerated her diet and was discharged home with ibuprofen PRN for pain and with a 1 week folllow up to see the surgeon. Date of Discharge: 01/21/19 Minutes to complete discharge: 39 Discharge Summary Reason For Visit: ABDOMINAL PAIN CHOLELITHIASIS BILIARY COLIC Current Active Problems Abdominal pain (Acute) Cholelithiasis (Acute) Condition: Stable - Instructions Diet, Activity, Other Instructions: Dr Dahl Discharge Instructions Dear ALFONSO TELLO, Post Operative Instructions Physical activity Resume your normal everyday activity as tolerated no heavy lifting or exercise until seen by your surgeon. You may walk unlimited amounts of and climb stairs. You may resume driving the car when you feel safe and comfortable behind the wheel and are no longer taking narcotic pain medication. Wound care If you have a bandage, leave it on, and keep dry for 48-72 hours. After that time discard the outer bandage. If there are tapes on the skin under the outer bandage, leave them in place. They will peel off in the next 7 to 10 days. Do Not Peel them off. You may shower the day after surgery but do not submerge the incision. Do not apply lotion or ointments to the incisions. If there are tapes present on the skin, you may shower over them. Diet There are no dietary restrictions. Eat healthy, high-fiber foods. Drink 6 to 8 glasses of liquid each day. This will assist in keeping your bowels are regular. Pain management We are prescribing you ibuprofen for pain. please took with food every couple of hours to manage your pain. Call Dr. Dahl for any of the following: Severe pain not relieved by medication Fever of 101 or higher Excessive bleeding or drainage on dressing Inability to urinate If you experience any chest pain or shortness of breath please seek emergency treatment immediately. Call the office at [phone] for an appointment in seven days. We are referring you to a primary care physician, please follow up within one week Referrals: Boogie Collazo MD [Staff Physician] - 1 Week Malcom Dahl MD [Staff Physician] - 1 Week Disposition: HOME - Home Medications Comprehensive Discharge Medication List: Ambulatory Orders Ibuprofen 600 mg PO TID PRN 7 Days #21 tablet 03/06/19 Problem List - Problems (1) Abdominal pain Code(s): R10.9 - UNSPECIFIED ABDOMINAL PAIN Qualifiers: Abdominal location: epigastric Qualified Code(s): R10.13 - Epigastric pain (2) Cholelithiasis Code(s): K80.20 - CALCULUS OF GALLBLADDER W/O CHOLECYSTITIS W/O OBSTRUCTION Qualifiers: Cholelithiasis location: gallbladder Cholecystitis presence: with cholecystitis Cholecystitis acuity: acute Biliary obstruction: without biliary obstruction Qualified Code(s): K80.00 - Calculus of gallbladder with acute cholecystitis without obstruction This patient is new to me today: No Emergency Visit: Yes ED Registration Date: 01/19/19 Care time: The patient presented to the Emergency Department on the above date and was hospitalized for further evaluation of their emergent condition. Critical Care patient: No - Discharge Referral Referred to [facility] Med P.C.: No
--- NOTE | 2019-01-22 15:42 | PATH ---
Surgical Pathology Report Patient Name: ALFONSO STOKES [facility]. Rec. #: [id number] /Age/Gender: 1970 (Age: 48) / F Account: [id number] Location: [address] [place] [address] Taken: 01/20/2019 Received: 01/21/2019 Reported: 01/22/2019 Physicians: Malcom Dahl M.D. PHYSICIAN EMERGENCY DEPT Specimen(s) Received A: GALLBLADDER B: LYMPH NODE Clinical History Abdominal pain, cholelithiasis, biliary colic Final Diagnosis A. GALLBLADDER, CHOLECYSTECTOMY: ACUTE SUPERIMPOSED ON CHRONIC CHOLECYSTITIS. CHOLELITHIASIS. B. LYMPH NODE, EXCISION: REACTIVE LYMPH NODE. Electronically Signed Veronique Guerra M.D. Gross Description A. Received in formalin, labeled "gallbladder," is a 10.0 x 2.7 x 1.8 cm. gallbladder with a 0.2 cm. in length portion of cystic duct attached. The outer surface is green with a focal defect and varies from smooth to shaggy. The lumen contains yellow, sludgelike bile as well as multiple yellow, irregular to fragmented choleliths ranging from 0.1-2.2 cm in greatest dimension. The mucosa is green and focally eroded. The wall of the gallbladder ranges from 0.1-0.4 cm. in thickness. Insulation Machine Operator sections are submitted in one cassette. B. Received in formalin labeled "lymph node," is a 1.1 x 0.8 x 0.5 cm brown, irregular lymph node. The specimen is bisected and entirely submitted in one cassette. /01/21/201901/21/2019
--- NOTE | 2019-01-24 10:55 | OP ---
DATE OF OPERATION: 01/20/2019 PROCEDURE: Laparoscopic cholecystectomy, lysis of adhesions. PREOPERATIVE DIAGNOSIS: Acute cholecystitis. POSTOPERATIVE DIAGNOSIS: Acute cholecystitis. SURGEON: Malcom Dahl M.D. ATHLETIC INSTRUCTOR: ROCÍO Mejias ANESTHESIA: General endotracheal. FINDINGS AND PROCEDURE: This is a 48-year-old female who presented with about 1 -week history of right upper quadrant pain radiating to the back aggravated by meals. Patient was evaluated in the emergency department where an ultrasound showed gallbladder wall thickening with multiple stones and normal size common duct. The gallbladder was noted to be contracted. However, the patient was noted to have abnormal liver function test with positive right upper quadrant tenderness and Henriquez's sign. The patient was admitted for intravenous antibiotics and HIDA scan. HIDA scan revealed delayed visualization of the gallbladder and no sign of biliary obstruction. Due to the patient's clinical symptoms, patient was advised to have a cholecystectomy and consent was obtained, after discussion of the risks, benefits and alternatives to the procedure. Patient was brought to the operating room and placed in supine position. General endotracheal anesthesia was administered. The abdomen was prepped and draped in the usual sterile fashion. Using 0.5% Marcaine, local anesthesia was administered to the proposed incision sites. The peritoneal cavity was entered using the Optiview technique via a 5 mm umbilical incision using the 5 mm 30-degree scope inserted in the 5 mm optical port. Pneumoperitoneum was established. The peritoneal cavity was carefully inspected and it was noted to be free of inadvertent injury. Patient was then placed in reverse Trendelenburg [id number] position. An 11 mm port was inserted at the subxiphoid region and two 5 mm ports were inserted at the right subcostal region in the midclavicular and anterior axillary lines. The gallbladder was noted to be distended and edematous with thickened lopes. The gallbladder was grasped at the fundus and retracted anterior superiorly. The infundibulum was grasped and retracted inferolaterally. This was done after taking down the adhesions of the transverse colon, as well as the pylorus to the anterior gallbladder wall. The hepatocystic triangle was carefully dissected scoring the visceral peritoneum using the hook dissector connected to monopolar cautery. The cystic duct as well as the cystic artery was carefully isolated using the [place] dissector combined with the peanut dissector. The proximal gallbladder wall was carefully dissected and lifted away from its liver bed to create the critical view of safety. The cystic duct and cystic artery were clipped at 3 points, followed by transection, leaving 2 clips on the cystic duct and cystic artery stumps. The gallbladder was then resected from its bed in antegrade fashion using the hook dissector connected to monopolar cautery. The gallbladder was placed in Endobag and extracted via the subxiphoid incision which was enlarged to accommodate the edematous gallbladder. The gallbladder bed was carefully inspected and was noted to be free of active bleeding. The Robles's pouch, as well as the right hepatic gutter was irrigated with sterile normal saline until the return was clear. The pneumoperitoneum was evacuated and the ports were removed. The subxiphoid incision was closed with [id number] Vicryl 0 suture for the fascia and the rest of the incisions were closed with subcuticular Biosyn 4-0 sutures reinforced with Dermabond. Patient was successfully extubated and transferred to the post anesthesia care unit in satisfactory condition. ESTIMATED BLOOD LOSS: About 15 mL. WOUND CLASSIFICATION: Clean, contaminated. Patient was already on antibiotics upon admission. Farhana [id number] MTDD
== END 2019-01-21 17:19 | disposition home or self-care (01) | DRG 263 ==
LOC: JER 16:29 → JERBED 19:56 → J5S 01-19 01:41 → OBSVTOIN 01-19 11:19
PROVIDERS: ADMIT Internal Medicine; ATTEND Internal Medicine
PROC: 0DNW4ZZ Release Peritoneum, Percutaneous Endoscopic Approach (ICD-10-PCS; 2019-01-20)
PROC: 0FT44ZZ Resection of Gallbladder, Percutaneous Endoscopic Approach (ICD-10-PCS; principal; 2019-01-20 14:00)
DX: K80.12 Calculus of gallbladder with acute and chronic cholecystitis without obstruction (principal); R10.11 Right upper quadrant pain; K66.0 Peritoneal adhesions (postprocedural) (postinfection)
CPT/HCPCS: 36415; 76705-TC; 78226-TC; 80048; 80053; 81003; 81015; 83690; 83735; 84100; 84450; 84460; 84703; 85025; 85027; 85610; 88304-TC; 88305-TC; 93005; 93010; 94760; 99284-25; A9537; G0378; J0131; J7030

== ENCOUNTER 2022-09-12 15:13 | Emergency (ER) | payer SELFPAY ==
[2022-09-12 15:24] VITALS: BP 156/95; PULSE 95; RESP 19; TEMP 98.6; BMI 26.5
[2022-09-12] MEDS ORDERED: ACETAMINOPHEN 1000 MG/100 ML BAG IVPB ONE (17:54)
[2022-09-12] MEDS ORDERED: METOCLOPRAMIDE HCL INJECTION 10 MG/2 ML VIAL IVPB ONE (17:54)
[2022-09-12] MEDS ORDERED: SODIUM CHLORIDE 1,000 ML IV STA (17:54)
[2022-09-12] MEDS ORDERED: METOCLOPRAMIDE HCL INJECTION 10 MG/2 ML VIAL ONE (18:31)
[2022-09-12] MEDS ORDERED: ACETAMINOPHEN INJECTION 100 ML IVPB ONE (18:32)
[2022-09-12 18:56] LABS: BASO % 0.5 % (0-2.0); EOS % 0.3 % (0-4.5); HEMATOCRIT 39.2 % (32.4-45.2); HEMOGLOBIN 13.2 GM/dL (10.7-15.3); MCH 29.7 pg (25.7-33.7); MCHC 33.6 g/dl (32.0-36.0); MEAN CELL VOLUME 88.3 fl (80-96); MEAN PLT VOLUME 7.2 fl (7.5-11.1); NEUT % 73.2 % (42.8-82.8); PLATELET COUNT 359 10^3/uL (134-434); RBC 4.44 M/mm3 (3.60-5.2); RDW 13.7 % (11.6-15.6)
[2022-09-12 19:24] LABS: CALCIUM 9.4 mg/dL (8.5-10.1)
[2022-09-12 19:25] LABS: ALBUMIN 3.6 g/dl (3.4-5.0); BLOOD UREA NITROGEN 11.7 mg/dL (7-18)
[2022-09-12 19:28] LABS: CREATININE 0.7 mg/dL (0.55-1.3)
[2022-09-12 19:29] LABS: BILIRUBIN,TOTAL 0.2 mg/dL (0.2-1); TOT PROT 7.1 g/dl (6.4-8.2)
== END 2022-09-12 20:52 | disposition home or self-care (01) ==
LOC: JER 15:13
PROC: 3E033GC Introduction of Other Therapeutic Substance into Peripheral Vein, Percutaneous Approach (ICD-10-PCS; principal; 2022-09-12)
DX: R51.9 Headache, unspecified (principal); R05.9 Cough, unspecified
CPT/HCPCS: 0241U-QW; 36415; 70450-TC; 80053; 85025; 99285-25